=== PATIENT | female | born 1945 | race Caucasian/White ===

== ENCOUNTER → 2016-07-30 | Outpatient (CLI) | payer MEDICARE, BC ==
[~2016-07-30] MED LIST: ALPHAGAN OP; AMOXICILLIN/CLA1 TA1 PO; BIAXIN500 MG PO; DIFLUCAN 100MG100 MG PO; DULERA1 AR1 IH; PRAVACHOL10 MG PO; SINGULAIR 110 MG/TAB PO; SINGULAIR10 MG PO; SYNTHROID0.05 MG/TA PO; SYNTHROID0.125 MG/T PO; THEO-DUR 1100 MG/TAB PO; THIAMINE I200 MG/2 M; TRAVATAN Z 2.52.5 ML OS; ZITHROMAX500 M2 PO; ZYRTEC 10MG10 MG PO
== END ==
LOC: MC.RAD 16:40
DX: Z12.31 Encounter for screening mammogram for malignant neoplasm of breast (principal)

== ENCOUNTER 2017-01-31 15:55 | Emergency (ER) | payer MEDICARE, BC ==
[~2017-01-31] VITALS: Ht 152.4 cm; Wt 53.6 kg
[~2017-01-31 15:55] MED LIST changes: -AMOXICILLIN/CLA1 TA1 PO; -ZITHROMAX500 M2 PO
[2017-01-31 15:58] VITALS: TEMP 99.1
[2017-01-31 17:13] LABS: ADJUSTED CALCIUM 8.8 mg/dL (8.4-10.2); BILIRUBIN,TOTAL 0.7 mg/dL (0.0-1.0); CALCIUM 8.8 mg/dL (8.4-10.2); CREATININE, serum 0.72 mg/dL (0.52-1.25); POTASSIUM 3.1 mmol/L (3.4-5.0); TOTAL PROTEIN 7.2 gm/dL (6.4-8.2)
[2017-01-31 17:18] LABS: HEMATOCRIT 37.3 % (37.0-47.0); HEMOGLOBIN 12.1 g/dl (12.5-16.0); MEAN CELL VOLUME 87 fl (80.0-100.0); MEAN CORPUSCULAR HEMOGLOBIN 28 pg (27.0-31.0); MEAN CORPUSCULAR HGB CONC 32 g/dl (33.0-37.0); MEAN PLATELET VOLUME 11.5 fl (7.4-10.4); PLATELET COUNT 323 K/mm3 (130-400); RED BLOOD COUNT 4.28 M/mm3 (4.10-5.30); REDCELL DISTRIBUTION WIDTH-CV 13.3 % (11.5-14.5); WHITE BLOOD COUNT 14.9 K/mm3 (4.8-10.8)
[2017-01-31 17:24] LABS: ADD PATHOLOGY DIFF REVIEW NO
[2017-01-31 17:45] LABS: PH 6 (5-8); SQUAMOUS EPITHELIAL 0-2 /hpf; URINE APPEARANCE Clear; URINE BACTERIA None Seen /hpf; URINE BILIRUBIN Negative (NEGATIVE); URINE BLOOD Negative (NEGATIVE); URINE COLOR Yellow; URINE GLUCOSE Negative (NEGATIVE); URINE KETONE Negative (NEGATIVE); URINE RBC 0-2 /hpf; URINE WBC 0-2 /hpf
[2017-01-31 17:49] LABS: BAND 28 % (0-10); EOSINOPHIL 2 % (0-4); NEUTROPHILS 51 % (42.0-75.2); TOTAL CELLS COUNTED 100
[2017-01-31] MEDS ORDERED: ZITHROMAX500 M2 PO (19:07)
[2017-01-31] MEDS ORDERED: AMOXICILLIN/CLA1 TA1 PO (19:07)
[2017-01-31 19:18] VITALS: BP 145/84; PULSE 99
== END 2017-01-31 19:19 | disposition home or self-care (01) ==
LOC: COL.ER 15:55
PROVIDERS: Emergency Medicine
DX: J18.9 Pneumonia, unspecified organism (principal); E87.6 Hypokalemia; J45.909 Unspecified asthma, uncomplicated; E03.9 Hypothyroidism, unspecified; Z90.710 Acquired absence of both cervix and uterus; Z98.890 Other specified postprocedural states
CPT/HCPCS: J0696; J7030

== ENCOUNTER → 2017-08-31 | Outpatient (CLI) | payer MEDICARE, BC ==
[~2017-08-31] MED LIST changes: +AMOXICILLIN/CLA1 TA1 PO; +ZITHROMAX500 M2 PO
== END ==
LOC: MC.RAD 16:40
DX: Z12.31 Encounter for screening mammogram for malignant neoplasm of breast (principal); N64.89 Other specified disorders of breast

== ENCOUNTER 2018-08-06 12:38 | Emergency (ER) | payer MEDICARE, BC ==
[~2018-08-06] VITALS: Ht 152.4 cm; Wt 53.2 kg
[2018-08-06 12:45] VITALS: TEMP 98.4
[2018-08-06 13:44] LABS: HEMATOCRIT 40.9 % (37.0-47.0); HEMOGLOBIN 13.2 g/dl (12.5-16.0); MEAN CELL VOLUME 86 fl (80.0-100.0); MEAN CORPUSCULAR HEMOGLOBIN 28 pg (27.0-31.0); MEAN CORPUSCULAR HGB CONC 32 g/dl (33.0-37.0); MEAN PLATELET VOLUME 11.4 fl (7.4-10.4); PLATELET COUNT 238 K/mm3 (130-400); RED BLOOD COUNT 4.74 M/mm3 (4.10-5.30); REDCELL DISTRIBUTION WIDTH-CV 13.7 % (11.5-14.5)
[2018-08-06 14:06] LABS: COLLECTION METHOD CLEAN CATCH
[2018-08-06 14:16] LABS: MUCOUS Present /lpf; PH 6 (5-8); SQUAMOUS EPITHELIAL 0-2 /hpf; URINE APPEARANCE Clear; URINE BACTERIA Many /hpf; URINE BILIRUBIN Negative (NEGATIVE); URINE BLOOD Negative (NEGATIVE); URINE COLOR Yellow; URINE GLUCOSE Negative (NEGATIVE); URINE KETONE Negative (NEGATIVE); URINE LEUKOCYTE ESTERASE Negative (NEGATIVE); URINE NITRATE Positive (NEGATIVE); URINE PROTEIN(semi-quant) Negative (NEGATIVE); URINE RBC 0-2 /hpf; URINE UROBILINOGEN Negative (NEGATIVE)
[2018-08-06 14:33] LABS: ALANINE AMINOTRANSFERASE 20 U/L (9-52); ALBUMIN 4.4 gm/dL (3.5-5.0); ALKALINE PHOSPHATASE 77 U/L (50-136); ANION GAP 11 mmol/L (7-16); AST,SGOT 70 U/L (15-37); BILIRUBIN,TOTAL 1.1 mg/dL (0.0-1.0); BLOOD UREA NITROGEN 18 mg/dL (7-17); CALCIUM 9.4 mg/dL (8.4-10.2); CARBON DIOXIDE 23 mmol/L (22-30); CHLORIDE 102 mmol/L (98-107); CREATININE, serum 0.79 mg/dL (0.52-1.25); GLUCOSE 125 mg/dL (74-106); POTASSIUM 3.5 mmol/L (3.4-5.0); SODIUM 137 mmol/L (137-145); TOTAL PROTEIN 7.4 gm/dL (6.4-8.2)
[2018-08-06 14:45] LABS: TROPONIN-I < 0.012 ng/mL (0.000-0.035)
[2018-08-06 15:09] LABS: BAND 2 % (0-10); LYMPHOCYTE 6 % (20.0-51.0); METAMYELOCYTE 2 % (0-0); NEUTROPHILS 85 % (42.0-75.2)
[2018-08-06 15:10] LABS: PLATELET ESTIMATE NORMAL (NORMAL)
[2018-08-06] MEDS ORDERED: OMNICEF 300MG300 MG PO (16:34)
[2018-08-06 16:58] VITALS: BP 141/80; PULSE 105
== END 2018-08-06 16:59 | disposition home or self-care (01) ==
LOC: COL.ER 12:38
PROVIDERS: Nurse Practitioner
DX: N39.0 Urinary tract infection, site not specified (principal); J06.9 Acute upper respiratory infection, unspecified; E03.9 Hypothyroidism, unspecified; J45.909 Unspecified asthma, uncomplicated; Z90.710 Acquired absence of both cervix and uterus; Z90.89 Acquired absence of other organs
CPT/HCPCS: J0696; J1885; J7030

== ENCOUNTER → 2018-08-23 | Outpatient (CLI) | payer MEDICARE, BC ==
[~2018-08-23] MED LIST changes: +OMNICEF 300MG300 MG PO
== END ==
LOC: ZCOL.LAB 16:51
DX: J45.909 Unspecified asthma, uncomplicated (principal); R50.9 Fever, unspecified

== ENCOUNTER → 2018-11-29 | Outpatient (CLI) | payer MEDICARE, BC | LOC: MC.RAD 16:45 | DX: Z12.31 Encounter for screening mammogram for malignant neoplasm of breast (principal) ==

== ENCOUNTER → 2020-04-09 | Outpatient (CLI) | payer MEDICARE, BC | LOC: MC.RAD 16:15 | DX: Z12.31 Encounter for screening mammogram for malignant neoplasm of breast (principal) ==

== ENCOUNTER 2020-12-04 22:52 | Emergency (ER) | payer OTHER, MEDICARE, BC ==
[~2020-12-04] VITALS: Ht 152.4 cm; Wt 54.5 kg
[2020-12-05 02:11] VITALS: BP 133/87; PULSE 89; TEMP 97.9
== END 2020-12-05 02:11 | disposition home or self-care (01) ==
LOC: COL.ER 22:52
DX: S01.81XA Laceration without foreign body of other part of head, initial encounter (principal); S01.112A Laceration without foreign body of left eyelid and periocular area, initial encounter; E03.9 Hypothyroidism, unspecified; Z23 Encounter for immunization; Z79.890 Hormone replacement therapy; Y92.511 Restaurant or cafe as the place of occurrence of the external cause; W01.198A Fall on same level from slipping, tripping and stumbling with subsequent striking against other object, initial encounter

== ENCOUNTER → 2020-12-13 | Outpatient (CLI) | payer OTHER, MEDICARE, BC ==
[2020-12-13 11:00] VITALS: BP 174/97; PULSE 98; TEMP 98
== END ==
LOC: COL.ER 10:53
DX: Z48.02 Encounter for removal of sutures (principal)

== ENCOUNTER → 2021-08-28 | Outpatient (CLI) | payer MEDICARE, BC | LOC: MC.RAD 16:30 | DX: Z12.31 Encounter for screening mammogram for malignant neoplasm of breast (principal) ==

== ENCOUNTER → 2022-10-16 | Outpatient (CLI) | payer MEDICARE, BC | LOC: MC.RAD 09:41 | DX: Z12.31 Encounter for screening mammogram for malignant neoplasm of breast (principal) ==

== ENCOUNTER → 2024-02-25 | Outpatient (CLI) | payer MEDICARE, BC | LOC: MC.RAD 08:50 | DX: Z12.31 Encounter for screening mammogram for malignant neoplasm of breast (principal) ==

== ENCOUNTER 2024-04-19 15:50 | Outpatient (CLI) | payer MEDICARE, BC ==
[~2024-04-19] VITALS: Ht 152.4 cm; Wt 58.5 kg
[2024-04-19 16:02] VITALS: BP 164/96; PULSE 112; TEMP 98.1
[2024-04-19] MEDS ORDERED: SYNTHROID0.088 MG/T PO (16:03)
[2024-04-19] MEDS ORDERED: PROLIA60 MG/ML SQ (16:04)
[2024-04-19] MEDS ORDERED: VITAMIN B11000 MCG/M IM (16:04)
[2024-04-19] MEDS ORDERED: Denosumab 60 MG/ML SYRINGE SQ ONE (16:15)
--- NOTE | 2024-04-19 16:29 | NUR ---
Pt tolerated prolia without issue. She is escorted down to entrance. Gait steady. She is free of complaints at discharge.
== END 2024-04-19 16:30 | disposition home or self-care (01) ==
LOC: EUO 15:50
DX: M81.0 Age-related osteoporosis without current pathological fracture (principal)
CPT/HCPCS: J0897